=== PATIENT | male | born 1990 | race Caucasian/White ===

== ENCOUNTER 2019-11-07 10:59 | Emergency (ER) | payer SELFPAY ==
--- NOTE | 2019-11-07 11:01 | NUR ---
Patient was no longer at ER registration and staff left ER entrance going outside to look for direction of depart. No car is noted in ER parking lot.
--- NOTE | 2019-11-07 11:05 | NUR ---
Call to [facility] to Eugenia White [phone]. A fax and phone call was rec'd just [employer] stating this patient being sent for mental health screening r/t phone call with them checking on him and they report he is SI and homicidal ideation. They report they are calling [employer] immediately to discuss this person. The patient is not visualized outside of ER in parking lots and all doors are controlled by locks within [facility] registration area. Shaina states he went thru the exit door. The patient may have drove self and would be parked in the East parking lot at front of [facility] building as no cars were in ER parking area.
== END 2019-11-07 11:07 | disposition left against medical advice (07) ==
LOC: EDSEX → ER FS 11:07
DX: F99 Mental disorder, not otherwise specified (principal)

== ENCOUNTER 2019-11-07 12:00 | Emergency (ER) | payer OTHER ==
[~2019-11-07] VITALS: Ht 177.8 cm; Wt 95.4 kg
--- NOTE | 2019-11-07 12:00 | NUR ---
Pt presents in [employer] Protective Custody r/t concerns with statements made to a licensed mental health staff in [facility] with [facility]. Pt has been assessed by PD in the Safety Sweeper concerns to change patient out of his clothing and obtain belongings. Pt is angry, hostile and uncooperative at this time and [employer] is requesting for the patient to be settled to decrease confrontations.
--- NOTE | 2019-11-07 12:15 | NUR ---
Called to [facility] to request an initiation for mental screening as Dr Cummins requests as [facility] have add'l information they could share with them.
[2019-11-07] MEDS ORDERED: HALOPERIDOL 5 MG/ML (HALDOL) AMP ONE (12:27)
[2019-11-07] MEDS ORDERED: HALOPERIDOL 5 MG/ML (HALDOL) AMP IM ONE ×2 (12:30→17:15)
[2019-11-07] MEDS ORDERED: LORazepam INJ 2 MG/ML (ATIVAN) VIAL IM ONE (12:30)
--- NOTE | 2019-11-07 12:32 | ED Psychosocial ---
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 Police called as pt was told to present to this ER by MH looking after his care and were aware that he had expressed SI and HI to them. He was driving himself and they advised he come to this ER as it was the closest facility. Police brought pt in custody to the ER. Belligerent and had to be tazed and cuffed. Allergies and Home Medications Allergies Coded Allergies: No Known Drug Allergies (Unverified , 11/07/19) Patient Home Medication List Home Medication List Reviewed: Yes Review of Systems Constitutional: no symptoms reported unable to perform complete ROS due to pt psychiatric state and uncooperative demeanor Past Fmgwyfr-Gwwquk-Jhmceu Hx Past Med/Social Hx: Reviewed Nursing Past Med/Soc Hx Physical Exam Vital Signs - First Documented 11/07/19 12:00 Temp 36.9 Pulse 117 Resp 18 B/P (MAP) 128/91 (103) Pulse Ox 100 O2 Delivery Room Air Capillary Refill : Height, Weight, BMI Height: '" Weight: lbs. oz. kg; BMI Method: General Appearance: WD/WN, other (agitated and threatening) Neurologic/Psychiatric: alert Behavior/Eye Contact: belligerent, compulsive, uncooperative Thoughts/Hallucinations: paranoid Skin: normal color Progress/Results/Core Measures Results/Orders Lab Results My Orders Medications Given in ED Vital Signs/I&O 11/10/19 08:39 Temp 36.7 Pulse 70 Resp 16 B/P (MAP) 130/70 (90) Pulse Ox 100 Progress Progress Note : Progress Note Patient unable to complete mental health screening with Alex Cole. Spoke with Alex and he stated patient was emotionally labile with significant disinterest and eventual agitation with the screening. He recommends involuntary status at this point. The only facility that would take him in this state would be [facility] and they currently have a wait list of 23 people. 11/10/2019 0600- Taking over care at shift change. Reports uneventful stay to this point. Police sitting w patient and he has been cooperative without difficulty. Has received no medication other than a nicotine patch. No change in placement status to MH facility at this time. 1430- Extensive conversation with Alex from mental health who is been between patient's screening today. He feels the patient has been maintaining his "calm", not raising his voice. He is concerned about the cost of this ER visit. He admits that he was angry when he initially came in because he was fired from his job the day before. Emphatically denies that isn't danger to himself or other people. He says his daughter is too important to him and he wants to live and doesn't want to hurt anyone. He is agreeing to follow up for counseling as well as talking to a business applications manager daily until his counseling appointment and thereafter as needed. The concerned mainly now is follow-up. Patient has not been a problem in this ER since initially coming in 3 days ago. He has required no medication for sedation or agitation after the initial evaluation. He has been cooperative with police officers as well as nursing with only a few angry outbursts that we were holding him against his will. Departure Impression Primary Impression: Anger reaction Disposition: 01 HOME, SELF-CARE Condition: Improved Departure-Patient Inst. Decision time for Depature: 15:21 Patient Instructions: Suicide Prevention Add. Discharge Instructions: Will follow up with Mental Health for further screening and to determine further MH treatment All discharge instructions reviewed with patient and/or family. Voiced understanding. KALANI MERINO DO Nov 07, 2019 12:32
--- NOTE | 2019-11-07 13:00 | NUR ---
Return call from Dano with [facility] and inquiring on pt hx obtained by RN which he shared nothing. Dano asked when medical clearance would be complete and notified [phone].
--- NOTE | 2019-11-07 13:00 | NUR ---
Gustavo madrid in [facility] - 11/07/19 at 1449 by CKOLORENAA Return call from Dano and connected on Zoom to start screening.
[2019-11-07 13:05] LABS: AMORPHOUS SEDIMENT,UR MOD AMOR URATES /LPF; BILIRUBIN,URINE NEGATIVE (NEGATIVE); CLARITY,URINE CLEAR; COLOR,URINE YELLOW; GLUCOSE, URINE (UA) NEGATIVE (NEGATIVE); KETONES,URINE NEGATIVE (NEGATIVE); LEUKOCYTE ESTERASE ,URINE NEGATIVE (NEGATIVE); NITRITE,URINE NEGATIVE (NEGATIVE); PROTEIN,URINE NEGATIVE (NEGATIVE)
[2019-11-07 13:09] LABS: BASOPHILS % (AUTO) 1 % (0-10); EOSINOPHILS % (AUTO) 1 % (0-10); HEMATOCRIT 50 % (35-52); HEMOGLOBIN 17.1 G/DL (11.5-16.0); LYMPHOCYTES % (AUTO) 17 % (12-44); MEAN CORPUSCULAR HEMOGLOBIN 30 PG (25-34); MEAN CORPUSCULAR HGB CONC 35 G/DL (32-36); MEAN CORPUSCULAR VOLUME 87 FL (80-99); MEAN PLATELET VOLUME 10.4 FL (7.4-10.4); MONOCYTES % (AUTO) 9 % (0-12); NEUTROPHILS # (AUTO) 11.9 X 10^3 (1.8-7.8); NEUTROPHILS % (AUTO) 73 % (42-75); PLATELET COUNT 352 10^3/uL (130-400); RED CELL DISTRIBUTION WIDTH 12.7 % (10.0-14.5); WHITE BLOOD COUNT 16.3 10^3/uL (4.3-11.0)
[2019-11-07 13:10] LABS: BASOPHILS # (AUTO) 0.1 10^3/uL (0.0-0.1); EOSINOPHILS # (AUTO) 0.1 10^3/uL (0.0-0.3); LYMPHOCYTES # (AUTO) 2.7 X 10^3 (1.0-4.0); MONOCYTES # (AUTO) 1.4 X 10^3 (0.0-1.0)
[2019-11-07 13:16] LABS: AMPHETAMINE SCREEN, URINE NEGATIVE (NEGATIVE); BARBITURATE SCREEN URINE NEGATIVE (NEGATIVE); BENZODIAZEPINES SCREEN URINE NEGATIVE (NEGATIVE); CANNABINOID SCREEN, URINE NEGATIVE (NEGATIVE); COCAINE SCREEN URINE NEGATIVE (NEGATIVE); METHADONE STAT NEGATIVE (NEGATIVE); METHAMPHETAMINE SCREEN URINE S NEGATIVE (NEGATIVE); OPIATE SCREEN URINE NEGATIVE (NEGATIVE); OXYCODONE STAT NEGATIVE (NEGATIVE); PROPOXYPHENE STAT NEGATIVE (NEGATIVE); TRICYCLIC ANTIDEPRESSANTS SCRE NEGATIVE (NEGATIVE)
[2019-11-07 13:27] LABS: BUN/CREATININE RATIO 18; CARBON DIOXIDE 22 MMOL/L (21-32); CHLORIDE 102 MMOL/L (98-107); CREATININE SERUM 0.89 MG/DL (0.60-1.30); GFR ESTIMATED > 60; POTASSIUM 4.2 MMOL/L (3.6-5.0); SODIUM 141 MMOL/L (135-145)
[2019-11-07 13:28] LABS: ACETAMINOPHEN < 10 UG/ML (10-30); ALANINE AMINOTRANSFERASE 25 U/L (0-55); ALBUMIN 4.5 GM/DL (3.2-4.5); ALKALINE PHOSPHATASE 101 U/L (40-136); BILIRUBIN,TOTAL 0.3 MG/DL (0.1-1.0); GLUCOSE 119 MG/DL (70-105); SALICYLATE < 5.0 MG/DL (5.0-20.0); TOTAL PROTEIN 7.7 GM/DL (6.4-8.2)
--- NOTE | 2019-11-07 13:35 | NUR ---
Call to Dano to give medical clearance from Dr Cummins.
[2019-11-07 13:51] LABS: BAND NEUTROPHILS 0 %; BASOPHILS % (MANUAL) 0 %; EOSINOPHILS % (MANUAL) 0 %; LYMPHOCYTES % (MANUAL) 28 %; MONOCYTES % (MANUAL) 7 %; NEUTROPHILS % (MANUAL) 65 %; RBC MORPH NORMAL
--- NOTE | 2019-11-07 14:00 | NUR ---
Return call from Dano at [facility] and began mental health screening via Zoom.
--- NOTE | 2019-11-07 14:25 | NUR ---
Call from Dano stating the screening stopped but is not completed. He is not medically cleared with a plan except he needs to finish his screening or he will be placed on the list for [facility] involuntary admit.
--- NOTE | 2019-11-07 14:35 | NUR ---
Pt had went to bathroom with [facility] officer accompanying and he becomes argumentive on route back to room with statements of planning to leave "as no one can hold me, I have rights, I didn't do anything wrong." Pt was explained he hasn't completed the screening and without the further assessments that would lead to next level, an involuntary [facility] admit. Pt raised voice and began screaming at [facility] officer, "Just put a bullet in my forehead as I refuse to go to [facility]." "Do it, put a bullet in my forehead."
--- NOTE | 2019-11-07 14:45 | NUR ---
Pt encouraged to sit or lie down on cart and relax and get calmed down. Pt needs to be calm to screen.
--- NOTE | 2019-11-07 15:00 | NUR ---
Dano with [facility] spoke with [employer] officer, RN, and then Dr Cummins. Plan to organize further [employer] staffing staying to monitor patient and maintaining the safest environment. Dr Cummins also notified by Dano with [facility] that rescreening tomorrow can be attempted but there are approx 23 ppl on wait/hold list for [place].
--- NOTE | 2019-11-07 15:54 | NUR ---
[employer] reassuring patient staff are working with [facility] and no plans at this time discussed.
--- NOTE | 2019-11-07 16:50 | NUR ---
Total of 5 officers and Ivonnet of [facility] here to address patient with his anger/outbursts and discussing his options for maintaining his safety and staff safety. With multiple [employer] staff present, explained the plan to have [facility] rescreen tomorrow as currently on bed hold for [place] with a waiting list. Continue to have [employer] assist patient's needs and escort to bathroom. The staff have been advised they would like minimizing agitation. No medications were required at this time as patient is following instruction and sitting down.
[2019-11-07] MEDS ORDERED: MIDAZOLAM 2 MG/2 ML (VERSED) VIAL IM ONE (17:15)
--- NOTE | 2019-11-07 17:15 | NUR ---
Add'l [employer] officers were present for shift change and the re-enforcement when patient notified of the no release from ED and [place] hold. The officers spoke with Dr about medication available if pt becomes to agitated and begins fighting officers again.
--- NOTE | 2019-11-07 17:30 | NUR ---
Changing officers in ER on duty sitting with patient.
--- NOTE | 2019-11-07 19:13 | NUR ---
Rec'd call from Dano with [facility] and he is advising an employee is shopping to provide food for mental health patient while boarding in ER.
--- NOTE | 2019-11-07 19:30 | NUR ---
Report to [facility].
[2019-11-08 07:42] VITALS: BP 125/72
--- NOTE | 2019-11-08 07:43 | NUR ---
Patient ambulatory to [facility], [facility] officer remains outside patient's room. Patient cooperative with staff and officer at this time, patient given water, offered food. Patient denies any suicidal or homicidal ideation at this time.
--- NOTE | 2019-11-08 08:18 | NUR ---
Called [facility] after-hours screening service for re-screening as Dano Cole's treatment expectations state "The ER can call for a re-assessment if they deem that the client's condition has improved at any point." Patient states he is no longer suicidal or homicidal. Chilango at [facility] states he cannot re-screen patient and the patient will have to wait until Sunday to either be screened again by Dano Cole or admitted to [facility]. Chilango states that Dano is not oncall this weekend, so he is unable to discuss the previous screening with Dano. Chilango states he is not comfortable re-screening patient without speaking to Dano first.
--- NOTE | 2019-11-08 08:38 | NUR ---
Patient ambulatory to bathroom with [employer] officer present.
--- NOTE | 2019-11-08 08:40 | NUR ---
Called [facility] to verify patient is on waiting list. Triage staff states that patient is currently number 25 on waiting list.
--- NOTE | 2019-11-08 09:14 | NUR ---
Called Dano at [facility], he will contact [facility] about re-screening patient.
--- NOTE | 2019-11-08 09:26 | NUR ---
Patient given food, ambulatory to restroom with officer present. Patient updated on plan of care.
--- NOTE | 2019-11-08 09:36 | NUR ---
Received call from Dano at [facility]. States that [facility] has agreed to re-screen the patient, but he is unsure of the timeframe of when that will happen. He has [facility] from yesterday.
--- NOTE | 2019-11-08 10:21 | NUR ---
Patient speaking with Chilango from [facility] via Zoom at this time.
--- NOTE | 2019-11-08 11:45 | NUR ---
[facility] Chilango states that patient's mother is unwilling to have patient come home until he receives help from a mental health facility. Chilango states that because the patient's mother is a critical part of his safety plan, he does not believe that patient would be safe if he were released from protective custody. Patient will remain an involuntary admission to OSH, PD officer to remain with patient. Spoke with officers concerning possible admission to [facility] until bed is open at OSH. Officers state that d/[place] issues [place], it would not be practical to attempt an admission.
--- NOTE | 2019-11-08 12:08 | NUR ---
Patient's girlfriend/fiancee called and notified of plan of care per patient's request.
[2019-11-08] MEDS ORDERED: NICOTINE 21 MG (NICODERM) PATCH TD ONE (12:15)
--- NOTE | 2019-11-08 13:30 | NUR ---
Patient given lunch and water, ambulatory to restroom with officer present.
--- NOTE | 2019-11-08 13:45 | NUR ---
Patient resting quietly in room.
[2019-11-08 14:16] VITALS: BP 147/86
--- NOTE | 2019-11-08 14:30 | NUR ---
Patient resting quietly in room.
--- NOTE | 2019-11-08 14:40 | NUR ---
Patient resting quietly in room.
--- NOTE | 2019-11-08 15:30 | NUR ---
Patient resting quietly in room.
--- NOTE | 2019-11-08 16:28 | NUR ---
Patient resting quietly in room.
--- NOTE | 2019-11-08 17:50 | NUR ---
Patient resting quietly in room.
[2019-11-09 08:47] VITALS: BP 155/95
--- NOTE | 2019-11-09 09:11 | NUR ---
Spoke with OSH for update. States patient is 25 on the wait list for admission.
[2019-11-09] MEDS ORDERED: NICOTINE 21 MG (NICODERM) PATCH ONE (16:48)
[2019-11-09] MEDS ORDERED: NICOTINE 21 MG (NICODERM) PATCH TD SCH (17:00)
--- NOTE | 2019-11-09 19:04 | NUR ---
PT SITTING IN CHAIR OUTSIDE ROOM WITH GUARD IN CHAIR BY NURSES STATION.
--- NOTE | 2019-11-09 19:29 | NUR ---
PT WILL ENTER PT ROOM AND THEN EXIT ROOM SHORTLY AFTER TO SIT IN CHAIR OUTSIDE ROOM. GUARD CONTINUES TO SIT IN CHAIR BY NURSES STATION.
--- NOTE | 2019-11-09 20:22 | NUR ---
PT SITTING IN CHAIR OUTSIDE PT ROOM. GUARD STANDING BY NURSES STATION.
--- NOTE | 2019-11-09 21:31 | NUR ---
PT RESTING IN BED.
--- NOTE | 2019-11-09 22:59 | NUR ---
PT SITTING OUTSIDE OF PT ROOM IN CHAIR. PT CONTINUES TO MAKE FREQUENT TRIPS TO THE BATHROOM ACCOMPAINIED BY GUARD. PT ASKED WHY HE WAS NOT ALLOWED TO LEAVE AND PT INFORMED THAT SINCE HE HAD MADE SUICIDAL THREATS AND THREATS OF HARM TO OTHERS THAT HE WOULD NOT BE ALLOWED TO LEAVE THE ED. PT VOICED UNDERSTANDING.
--- NOTE | 2019-11-10 00:14 | NUR ---
PT SLEEPING IN BED. GUARD SEATED OUTSIDE PT ROOM.
--- NOTE | 2019-11-10 01:26 | NUR ---
PT CONTINUES SLEEPING IN PT ROOM.
--- NOTE | 2019-11-10 02:39 | NUR ---
PT AWAKE AND WALKED TO BATHROOM ACCOMPANIED BY GUARD. PT RETURNED TO ROOM AND LAID DOWN IN BED.
--- NOTE | 2019-11-10 03:42 | NUR ---
PT SLEEPING IN BED. GUARD IN CHAIR OUTSIDE PT ROOM.
--- NOTE | 2019-11-10 08:30 | NUR ---
Patient cooperative and resting quietly in room. Vitals taken. Patient updated on possible placement.
--- NOTE | 2019-11-10 08:37 | NUR ---
FAXED INFO TO [facility]
[2019-11-10 08:39] VITALS: BP 130/70
--- NOTE | 2019-11-10 09:17 | NUR ---
Received call from [facility]. Janie at [place] states they are working on orders for the patient and then they will call us back with a bed number and details for transportation.
--- NOTE | 2019-11-10 09:47 | NUR ---
Received call from Janie at [facility] stating they are declining the patient due to behavior.
--- NOTE | 2019-11-10 09:48 | NUR ---
Received call from [facility] requesting information be faxed to [phone]. States patient is still on the list but it will likely be a day or two before he can be admitted.
--- NOTE | 2019-11-10 10:30 | NUR ---
PD requesting patient to be rescreened.
--- NOTE | 2019-11-10 10:52 | NUR ---
Dano from [facility] called to rescreen patient.
--- NOTE | 2019-11-10 13:23 | NUR ---
Received call from Dano at stating it is possible they might send the patient home with a safety plan. Dano is going to discuss with the physician, the [employer] police officer present, and talk with the patient again before any decisions are made.
--- NOTE | 2019-11-10 13:30 | NUR ---
Dano states he is going to speak to the patient to inform him that his girlfriend is planning on ending the relationship. How the patient responds to this information will depend on if he can be released with a safety plan or not.
--- NOTE | 2019-11-10 13:44 | NUR ---
Dano talking to patient via zoom laptop.
--- NOTE | 2019-11-10 14:24 | NUR ---
Received call from Dano at [facility]. States he will be faxing us a safety plan for the patient to sign and then he will be free to be discharged.
[2019-11-10 14:35] VITALS: BP 130/70
[2019-11-10] MEDS ORDERED: NICOTINE 21 MG (NICODERM) PATCH TD ONE (16:00)
== END 2019-11-10 14:35 | disposition home or self-care (01) ==
LOC: EDUNIT# 12:05 → EDSEX 12:07 → ER FS 12:07
DX: R45.4 Irritability and anger (principal)
CPT/HCPCS: 36415; 80053; 80306; 81000; 85007; 85027; 99283; G0480 ×3; 80320; 80329